=== PATIENT | female | born 1970 | race Caucasian/White ===

== ENCOUNTER → 2024-02-21 15:19 | Outpatient (CLI) | payer OTHER, SELFPAY ==
--- NOTE | 2024-02-21 15:21 | DI.US.S_ITS ---
PROCEDURE: US PELVIC COMPLETE INDICATIONS: postmenopausal bleeding TECHNIQUE: Real-time scanning was performed of the pelvic organs, with image documentation. Additional endovaginal scanning was necessary due to incomplete visualization of the adnexal and endometrial structures by transabdominal scanning. COMPARISON: None. FINDINGS: Uterus: Uterus is anteverted and normal in size at 7.0 x 4.7 x 4.0 cm. The myometrium is homogeneous. The endometrium measures 4 mm combined thickness. Several myometrial cysts measuring up to 2 mm. Prominent left periuterine vessels measuring up to 6 mm. Ovaries: The right ovary measures 2.0 x 1.6 x 0.8 cm, with a calculated ovarian volume of 1.3 cc. The left ovary measures 2.0 x 1.1 x 1.1 cm, with a calculated ovarian volume of 1.3 cc. The ovaries have a normal sonographic appearance. Less than 12 follicles can be seen in each ovary. No adnexal masses are seen. Other: No pathologic free abdominal or pelvic fluid. IMPRESSION: Endometrium is normal in thickness measuring 4 mm. Prominent left periuterine vessels, nonspecific and may represent pelvic congestion syndrome. Recommend clinical correlation. Normal appearance of the ovaries. We strive to produce accurate, complete, and clear reports of imaging services. To assist us in improving patient care, this report was composed using standard report templates and voice recognition software. Therefore, it may contain abnormal punctuation, insertions and/or omissions. Occasional wrong-word or sound-alike substitutions may occur. Though we review the report and make efforts to correct it, we do recommend that the report be read carefully in proper context to recognize any text inaccuracies. Dictated by: Jr Galindo M.D. on 02/21/2024 at 16:45 Approved by: Jr Galindo M.D. on 02/21/2024 at 16:47
== END ==
PROVIDERS: PCP Family Medicine; Referring Provider Family Medicine; Visit Provider Family Medicine
DX: N95.0 Postmenopausal bleeding (principal)
CPT/HCPCS: 76830; 76856